=== PATIENT | female | born 1960 | race Caucasian/White ===

== ENCOUNTER 2017-07-30 10:29 | Emergency (ER) | payer OTHER, SELFPAY ==
[2017-07-30 10:30] VITALS: BP 117/68; PULSE 75; RESP 17; TEMP 37; O2SAT 96; BMI 31.8
--- NOTE | 2017-07-30 10:56 | ED.VISSUMM ---
- ER Visit Summary Date of Service: 07/30/17 Chief Complaint: Back pain History of Present Illness: The patient is a 56 F presenting with back pain ?2.5 weeks. Patient has a history of chronic back pain and is in pain management. She denies recent injury. She has left low back pain radiating down her left leg. She is scheduled for an injection by her pain management physician on Tuesday. She takes gabapentin. She denies bowel or bladder incontinence. No numbness or weakness. She is able to ambulate with pain. Denies fever. Denies other complaints. Physical Examination: Vitals are stable. Patient is afebrile. Alert no acute distress. HEENT exam is unremarkable. Neck is supple. Lungs are clear and equal bilaterally. Heart is regular rate and rhythm. Abdomen is soft nontender nondistended. Back: Left low lumbar paraspinal muscle tenderness, no midline tenderness Extremities are unremarkable. Skin is warm and dry. No focal neurologic deficit. Normal strength and sensation Remainder of exam is unremarkable. Emergency Department Course and Treatment: Patient is given morphine, Zofran with improvement. Lumbar x-ray shows mild lumbar spondylotic changes without definite evidence for acute fractures. Patient is advised to follow-up with her pain management physician. She is advised return to ED for any worsening complaints. Disposition: Discharge home Impression: Acute on chronic back pain This note was generated with [employer] dictation software. It may contain incorrect words, spelling, and punctuation that were not noted in review of the chart prior to signing ED Disposition - Plan for ED Patient: Chief Complaint: Back Referrals: Bernard Valdivia MD [Primary Care Provider] -
[2017-07-30] MEDS: morphine 8 MG/ML Syringe IM (11:01)
[2017-07-30] MEDS: Ondansetron ODT 4 MG Tablet 8 MG PO (11:01)
--- NOTE | 2017-07-30 11:10 | RAD_ITS ---
STUDY: X-RAY - LUMBAR SPINE REASON FOR EXAM: Female, 56 years old. Back pain TECHNIQUE: 3 view(s) of the lumbar spine were obtained. COMPARISON: November 07 2014 lumbar spine radiographs FINDINGS: Mild straightening of the lumbar lordotic curvature. Mild anterior osteophytic spurring. Multilevel facet arthrosis. Spinous processes are midline. Degenerative changes in the sacroiliac joints. Vascular calcifications of the abdominal aorta. Mild degenerative changes of the sacroiliac joints. IMPRESSION: Mild lumbar spondylotic changes without definite evidence for acute fractures. Electronically Signed: Tyshawn Sarabia, at 11:42 EDT Tel , Service support , RAD/Lumbar Spine 2 or 3 Views
--- NOTE | 2017-07-30 12:12 | ED.DEP ---
ED Disposition - Plan for ED Patient: Chief Complaint: Back Instructions: ED Neck Back Pain General Referrals: Bernard Valdivia MD [Primary Care Provider] -
[2017-07-30 12:17] VITALS: BP 107/68; PULSE 80
== END 2017-07-30 12:18 | disposition home or self-care (01) ==
PROVIDERS: Emergency Provider Emergency Medicine; Family Provider Family Medicine; PCP Family Medicine
DX: M54.5 Low back pain (principal); G89.29 Other chronic pain; Z79.899 Other long term (current) drug therapy; Z72.0 Tobacco use
CPT/HCPCS: 72100; 96372; 99284

== ENCOUNTER 2017-09-08 14:56 | Emergency (ER) | payer OTHER, MEDICARE, SELFPAY ==
[2017-09-08 14:57] VITALS: BP 102/70; PULSE 88; RESP 18; TEMP 37.2; O2SAT 96; BMI 30.2
--- NOTE | 2017-09-08 16:01 | ED.VISSUMM ---
- ER Visit Summary Date of Service: 09/08/17 Chief Complaint: Back pain History of Present Illness: The patient is a 56 F acute worsening back pain after sneezing 2 hours prior to arrival. States she was standing fixing supper when symptoms started. She has had chronic pain down her left leg. No loss of bowel or bladder control. Patient states she stopped seeing pain management last month and is being referred to neurosurgery in October. She had an ablation on her right side which fixed her right side however this is when the left-sided started. She weaned off her gabapentin in this past week. She is still on Zanaflex. No history of diabetes. States a month ago was seen here after having increasing pain post ablation, had a morphine injection which gave her a headache. Pain is worse with movement. There was no falls or direct injuries. Physical Examination: General: Alert and oriented ?3, no acute distress HEENT: Normocephalic, atraumatic. Moist mucosa membranes Neck: supple, nontender. Cardiovascular: Regular rate and rhythm, no murmurs Respiratory: Normal breath sounds, symmetric, no distress Abdomen: Soft, nontender, nondistended Back: There is tenderness lower lumbar, straight leg test was negative. 1+ patellar reflex bilaterally. Extremities: Nontender, no edema, pulses intact ?4 Neuro: no focal neurological deficits. Test Results: [] Emergency Department Course and Treatment: Patient with no cauda equina symptoms. Vital signs stable. Chronic left leg radicular symptoms. Patient will be placed on a steroid burst to see will help her symptoms. She given Dilaudid subcu injection. She states she would like to go back to using her Carisoprodol for muscle relaxer, short prescription will be written. She will hold her Zanaflex in the meantime. She will follow-up with her PCP and neurosurgeon as an outpatient. Patient had, Treatment Plan: [] Disposition: Discharge Impression: 1. Acute on chronic back pain This note was generated with [employer] dictation software. It may contain incorrect words, spelling, and punctuation that were not noted in review of the chart prior to signing ED Disposition - Plan for ED Patient: Disposition: Home or Assisted Living Chief Complaint: Back Diagnosis: Acute exacerbation of chronic low back pain Instructions: ED Low Back Pain Injury Prescriptions: Carisoprodol [Soma] 250 mg PO Q8H PRN PRN #15 tablet PRN Reason: back pain Prednisone [Deltasone] 60 mg PO DAILY #15 tablet Referrals: Bernard Valdivia MD [Primary Care Provider] - 3-5 Days Additional Instructions: Take medication as prescribed. Hold your Zanaflex while taking Carisoprodol. Follow-up with your doctor and your neurosurgeon.
[2017-09-08] MEDS: predniSONE 20 MG Tablet 60 MG PO (16:43)
[2017-09-08] MEDS: HYDROmorphone 1 MG/ML Syringe SC (16:43)
[2017-09-08 16:50] VITALS: BP 115/85; PULSE 61; RESP 14; O2SAT 97
== END 2017-09-08 17:08 | disposition home or self-care (01) ==
LOC: ED 16:24
PROVIDERS: Emergency Provider Emergency Medicine; Family Provider Family Medicine; PCP Family Medicine
DX: M54.9 Dorsalgia, unspecified (principal); G89.29 Other chronic pain; J44.9 Chronic obstructive pulmonary disease, unspecified; E03.9 Hypothyroidism, unspecified; Z79.899 Other long term (current) drug therapy
CPT/HCPCS: 96372; 99283

== ENCOUNTER 2018-02-01 13:04 | Emergency (ER) | payer OTHER, MEDICARE, SELFPAY ==
[2018-02-01 13:05] VITALS: BP 102/67; PULSE 96; RESP 17; TEMP 36.3; O2SAT 98; BMI 32.3
--- NOTE | 2018-02-01 15:21 | ED.VISSUMM ---
- ER Visit Summary Date of Service: 02/01/18 Chief Complaint: Back pain History of Present Illness: The patient is a 57 F presenting for evaluation secondary to back pain. Patient reports over the course last 3 days she has had a gradual onset of worsening back pain. Patient states that it was not associated with any sort of injury. It is in the left lower back and radiates somewhat to her groin. She denies any numbness weakness fevers weight loss of bowel or bladder incontinence recent surgeries injections or history of IV drug abuse. Patient states that she has been taking Advil and Zanaflex for this. She has had a history of this in the past. Physical Examination: Vitals: Within normal limits General: Well-nourished well-developed no acute distress Head: Normocephalic atraumatic ENT: Moist mucous membranes Neck: Supple no JVD Cardiovascular: Heart regular rate and rhythm no murmurs Respiratory: Respirations nondistressed, lung sounds clear to auscultation bilaterally Abdominal: Soft, nontender, nondistended, normal bowel sounds, no evidence of abdominal masses or pulsatile mass Back: Normal to inspection, no midline tenderness to palpation, straight leg raise negative bilaterally, left paraspinal lumbar tenderness Extremities: Nontender, nonedematous, 2+ radial and PT pulses bilaterally symmetric Skin: Normal color no rash Neuro: 5/5 strength hip flexion, knee flexion, knee extension, dorsiflexion, plantarflexion, EHL. Sensation intact over all dermatomes of the lower extremities bilaterally, 2+ patellar and Achilles reflexes bilaterally symmetric, negative clonus bilaterally Test Results: None indicated Emergency Department Course and Treatment: Patient presented with paraspinal back pain. There is no indication for imaging or neuroimaging. Patient was treated with Valium diclofenac and Lidoderm. Disposition: Discharge Impression: 1. Lumbosacral strain This note was generated with [employer] dictation software. It may contain incorrect words, spelling, and punctuation that were not noted in review of the chart prior to signing ED Disposition - Plan for ED Patient: Disposition: Home or Assisted Living Chief Complaint: Back Diagnosis: Lumbosacral strain Instructions: ED Sprain Strain Lumbar Prescriptions: Diazepam [Valium] 2 mg PO BID PRN PRN 3 Days #6 tab PRN Reason: Muscle Spasm Lidocaine [Lidoderm] 1 ea TP DAILY #10 adh..patch Diclofenac [Voltaren] 50 mg PO BIDCM #10 tab Referrals: Bernard Valdivia MD [Primary Care Provider] - As Needed
[2018-02-01] MEDS: diazePAM 5 MG Tablet 2.5 MG PO (15:28)
[2018-02-01 15:36] VITALS: BP 100/74; PULSE 78; RESP 18; O2SAT 96
[2018-02-01] MEDS: Lidocaine 5% Patch 1 PATCH TOPICAL (15:42)
== END 2018-02-01 15:44 | disposition home or self-care (01) ==
LOC: ED 15:34
PROVIDERS: Emergency Provider Emergency Medicine; Family Provider Family Medicine; PCP Family Medicine
DX: S39.012A Strain of muscle, fascia and tendon of lower back, initial encounter (principal); X58.XXXA Exposure to other specified factors, initial encounter; Y93.9 Activity, unspecified; Y92.9 Unspecified place or not applicable
CPT/HCPCS: 99284

== ENCOUNTER 2020-07-19 10:55 | Emergency (ER) | payer OTHER, MEDICARE, SELFPAY ==
[2020-07-19 10:57] VITALS: BP 111/74; PULSE 99; RESP 18; TEMP 36.6; O2SAT 97; BMI 31.6
--- NOTE | 2020-07-19 11:05 | EDS_ITS ---
HPI History of Present Illness Chief Complaint: Upper Extremity Injury Detail of Chief Complaint: left shoulder pain Informant: patient Onset/Context/Timing Onset: Month(s) (1-2) Context: Gradual Onset (without injury) Timing: Continuous Quality of Pain: Aching Location: left shoulder - subacromial and upper periscapular/trap Current Severity: Severe Maximum Severity: Severe Worsened by: abduction Relieved by: remaining still in neutral position Associated Symptoms Associated Symptoms: Negative for Parasthesia, Weakness and Loss of Funtion Narrative Narrative: Patient started having left shoulder pain 1 or 2 months ago, saw orthopedics and had an x-ray, as well as a cortisone injection about 1.5 months ago which did seem to help. 2 days ago she woke up and the pain was much worse and she cannot abduct more than 10 degrees or so without being in severe pain, significantly limiting her ability to use her left upper extremity. She called her orthopedic yesterday but did not get a call back, today is Tuesday and she is in a lot of pain so she came to the ER for evaluation. She is right-hand dominant. She denies any injury or repetitive movements the day before the onset of pain that she knows of. She denies any systemic symptoms or fevers. She takes no anticoagulants. PFSH [facility] Medical History Cholecystitis without calculus History of COPD History of hypothyroidism Tobacco user Home Medications levothyroxine 100 mcg PO DAILY 06/20/14 [History Last Taken Unknown] tizanidine 1 tab PO Q6H PRN PRN 09/08/17 [History Last Taken Unknown] amitriptyline 25 mg PO QHS 02/01/18 [History Last Taken Unknown] lidocaine 1 ea TP DAILY #10 adh..patch 02/01/18 [Rx Last Taken Unknown] hydrocodone-acetaminophen 1 tab PO Q4H PRN PRN 2 Days #10 tablet 07/19/20 [Rx Last Taken Unknown] Allergy/AdvReac Type Severity Reaction Status Date / Time acetaminophen [From Midol] Allergy Other Verified 07/19/20 10:56 clindamycin Allergy Hives Verified 07/19/20 10:56 ketorolac tromethamine Allergy Hives Verified 07/19/20 10:56 [From Toradol] naproxen Allergy Itching Verified 07/19/20 10:56 pamabrom [From Midol] Allergy Other Verified 07/19/20 10:56 morphine AdvReac Other Verified 07/19/20 10:56 paroxetine [From Paxil] AdvReac Vomiting Verified 07/19/20 10:56 Surgical History (Updated 07/19/20 @ 11:27 by Mouna Crum) H/O foot surgery Social History Smoking Status: Former smoker ROS ROS ED Constitutional Constitutional ED: Denies chills or fever(s) Eyes Eyes: Denies change in vision or diplopia ENT ENT ED: Denies rhinorrhea or sore throat Cardiovascular Cardiovascular: Denies chest pain or palpitations Respiratory/Chest Respiratory/Chest: Denies cough or dyspnea Gastrointestinal Gastrointestinal: Denies abdominal pain, diarrhea, nausea or vomiting Genitourinary Genitourinary ED: Denies dysuria or hematuria Musculoskeletal Musculoskeletal: Reports as per HPI and other Details: L shoulder pain ; Denies back pain or neck pain Integumentary Denies abscess or rash Neurologic Neurologic: Denies headache(s), paresthesias or weakness Psychiatric Psychiatric: Denies anxiety or suicidal thoughts EXAM Physical Exam Const Vital Signs: 07/19/20 10:57 Temperature 97.8 F Temperature Source Temporal Pulse Rate 99 Respiratory Rate 18 Blood Pressure 111/74 Blood Pressure Mean 86 Pulse Ox 97 Positive well nourished, well developed and obese General Appearance ED: well developed and NAD Nutritional Appearance: obese HEENT normocephalic and atraumatic Eyes PERRL and EOMs intact bilaterally Neck full ROM and supple Neck Narrative: Mildly tender in left trapezius above the scapula Resp normal respiratory effort Back/Spine normal ROM and normal to inspection Extremity normal to inspection General Extremety ED: Negative for edema General Extremity: Negative for edema Left Upper Extremity: shoulder joint Shoulder Joint Exam - Left: inspection (Normal without erythema, effusion, deformity), palpation (Mild subacromial tenderness. Nontender acromioclavicular joint, clavicle, scapular spine, acromion.), ROM (Limited but able to abduct to about 10 or 15 degrees. Able to internally rotate and externally rotate around 10 or 15 degrees before she starts having pain; external rotation range is about normal.) and neurovascular exam (Normal with 2+/4 pulse radial) Neuro oriented x3, CN's II-XII intact bilaterally, no focal motor deficits and no sensory deficits noted Sensorium / Orientation: alert Psych mental status grossly normal Skin Lesions: no lesions Rashes: no rashes Trauma: no lacerations or abrasions MDM MDM MDM Narrative Medical decision making narrative: As below, radiography shows calcific tendinitis consistent with the patient's symptoms. Her range of motion is fairly limited, but adequate to rule out a septic arthritis clinically. She was given a dose of tramadol a sling and advised to follow-up with orthopedics after the weekend along with a prescription for analgesics. She is comfortable with that plan. She was given a tramadol here, it did not help much so I prescribed her a short course of Era. Radiography Diagnostic Testin view x-ray of the left shoulder my interpretation shows calcific tendinitis in the supraspinatus tendon. Radiology interpretation is in agreement and show no other acute abnormalities. Discharge Plan Triage Chief Complaint: Upper Extremity Injury ED Provider: Zeke Talley Dx/Rx/DC Orders Clinical Impression: Calcific tendonitis of left shoulder Instructions: ED Shoulder Impingement Syndrome, ED Tendonitis Prescriptions: New hydrocodone-acetaminophen 5-325 mg tablet 1 tab PO Q4H PRN PRN (Reason: Pain) 2 Days Qty: 10 RF: 0 No Action levothyroxine 100 MCG tablet 100 mcg PO DAILY RF: 0 tizanidine 4 MG tablet 1 tab PO Q6H PRN PRN (Reason: Muscle Spasm) RF: 0 lidocaine 1 EACH adhesive patch,medicated 1 ea TP DAILY Qty: 10 RF: 0 amitriptyline 25 MG tablet 25 mg PO QHS RF: 0 Primary Care Provider: Bernard Valdivia Referrals: Zeke Fall MD [NON-STAFF] - 3-5 Days Bernard Valdivia MD [Primary Care Provider] - Disposition Disposition: Home, self care
--- NOTE | 2020-07-19 11:09 | RAD_ITS ---
STUDY: X-RAY - LEFT SHOULDER REASON FOR EXAM: Female, 59 years old. pain TECHNIQUE: 3 view(s) of the shoulder. COMPARISON: None. FINDINGS: Normal glenohumeral articulation. Normal acromioclavicular joint. Normal acromion. Normal humeral head and visualized proximal humerus. There is periarticular soft tissue calcification consistent with a calcific tendinitis. Normal visualized pulmonary apex. Fusion hardware of the lower cervical spine. RAD/Shoulder min 2 Views IMPRESSION: No fracture or malalignment. Electronically Signed: Jayesh Field MD ([place]) at 11:41 EDT , Service support ,
[2020-07-19] MEDS: traMADol 50 MG Tablet PO (11:23)
== END 2020-07-19 12:40 | disposition home or self-care (01) ==
LOC: ED 12:34
PROVIDERS: Emergency Provider Emergency Medicine; PCP Family Medicine
DX: M75.32 Calcific tendinitis of left shoulder (principal); E03.9 Hypothyroidism, unspecified; J44.9 Chronic obstructive pulmonary disease, unspecified; Z87.19 Personal history of other diseases of the digestive system; Z79.899 Other long term (current) drug therapy; Z87.891 Personal history of nicotine dependence
CPT/HCPCS: 73030; 99283

== ENCOUNTER 2022-03-01 12:27 | Emergency (ER) | payer OTHER, MEDICARE, SELFPAY ==
[2022-03-01 12:29] VITALS: BP 139/92; PULSE 107; RESP 18; TEMP 37.6; O2SAT 96; BMI 31.1
[2022-03-01 14:01] VITALS: BP 140/78; PULSE 89; RESP 16; TEMP 37.6; O2SAT 98
[2022-03-01 14:01] LABS: Absolute Lymphocyte Count 1.63 X10^3/uL (0.83-4.51); Absolute Neutrophil Count 3.5 X10^3/uL (2.0-7.7); Basophil# 0.06 X10^3/uL; Eosinophil# 0.13 X10^3/uL; Eosinophils% 2.2 % (0-5); Hematocrit 43.7 % (37-47); Hemoglobin 14.2 g/dL (12.0-15.0); Lymphocyte # 1.63 X10^3/ul (0.83-4.51); Lymphocyte % 27.4 % (19-41); Mean Corp Hgb Conc 32.5 g/dL (32-36); Mean Corpuscular Hgb 31.5 pg (27.0-32.0); Mean Corpuscular Volume 96.9 fL (81-99); Mean Platelet Vol. 10.3 fl (6.2-12.0); Monocyte% 10.1 % (0-10); NRBC Flagged by Analyzer 0 % (0-5); Neutrophil # 3.51 X10^3/uL (2.7-7.7); Neutrophil % 59.1 % (47-70); Platelet Count 224 K/mm3 (150-450); RBC Distribution Width SD 46.7 fl (35.1-43.9); Red Blood Count 4.51 M/mm3 (4.2-5.4); White Blood Count 5.9 K/mm3 (4.4-11.0)
[2022-03-01 14:11] LABS: Anion Gap 4 (5-15); BUN 11 mg/dL (7-18); BUN/Creat Ratio 10.3 RATIO (10-20); Calcium,Total 9.2 mg/dL (8.5-10.1); Chloride 106 mmol/L (98-107); Creatinine, Serum 1.07 mg/dL (0.55-1.02); EST Glomerular Filtration Rate 55 mL/min (>60); Est Glom Filt Rate - Afr Amer 67 mL/min (>60); Estimated Creatinine Clearance 49.68 ml/min; Glucose 106 mg/dL (74-106); Potassium 3.9 mmol/L (3.5-5.1); Sodium Level 139 mmol/L (136-145)
--- NOTE | 2022-03-01 15:06 | RAD_ITS ---
STUDY: X-RAY CHEST REASON FOR EXAM: Female, 61 years old. Cough, fever TECHNIQUE: PA and lateral views of the chest. COMPARISON: Comparison is made with prior study of 02/08/2012. FINDINGS: The lungs are clear and expanded. There is no demonstrated pleural abnormality. Normal size heart. Normal mediastinum and subhash. Normal visualized pulmonary arteries. There is atherosclerotic calcification of the aortic arch with tortuosity. Normal visualized thoracic spine. Prior fusion and disc spacers placed in the lower cervical spine. There is no demonstrated abnormality of the visualized soft tissue structures of the upper abdomen. RAD/Chest PA and Lateral IMPRESSION: No acute abnormality is seen. Electronically Signed: John Brunner MD at 15:21 EST ,
--- NOTE | 2022-03-01 15:11 | CT_ITS ---
STUDY: CT ABDOMEN AND PELVIS WITH CONTRAST REASON FOR EXAM: Fem61 years, old. Diffuse abdominal pain. RADIATION DOSAGE (If Supplied By Facility): CTDIvol = ( 16.61 ) mGy, DLP = ( 1049.21 ) mGycm TECHNIQUE: Transaxial images were obtained from the dome of the diaphragm to the symphysis pubis without oral contrast. 100 CC ISOVUE 300 was administered. Sagittal and coronal images were reconstructed. Individualized dose optimization techniques were used for this CT. COMPARISON: Comparison is made with prior study dated 03/16/2015. FINDINGS: The visualized lung bases are unremarkable. Coronary artery calcification. There is decreased attenuation of the liver consistent with steatosis. The patient is status post cholecystectomy. Normal spleen. Normal pancreas. Normal bilateral adrenal glands. Normal right kidney. Normal left kidney. There is a small hiatal hernia. Normal small intestine. Large amount of fecal material is seen throughout the colon. The patient is status post appendectomy. There is diffuse atherosclerotic calcification of the abdominal aorta, without a demonstrated aneurysm. Normal inferior vena cava. Normal retroperitoneum. Normal urinary bladder. Normal abdominal wall. Normal osseous structures. CT/Abdomen/Pelvis W IV Cont ONLY IMPRESSION: Diffuse fatty infiltration of the liver. Status post cholecystectomy. Large amount of fecal material is seen in the colon. Electronically Signed: John Brunner MD at 15:40 EST ,
[2022-03-01] MEDS: Ondansetron 4 MG/2 ML Vial IV (15:12)
[2022-03-01] MEDS: 0.9% Normal Saline 1,000 ML 150 ML IV (15:12)
[2022-03-01] MEDS: HYDROmorphone 0.5 MG/0.5 ML SYRINGE IV (15:13)
[2022-03-01 15:14] LABS: Mucous, Urine 0 SEEN /hpf (<or=2+); Red Blood Cells-Urine 0 SEEN /hpf (0-5); White Blood Cells 0 SEEN /hpf (0-5)
[2022-03-01 15:16] LABS: Color, Urine Yellow (Yellow); Glucose, Dipstick Normal (Normal); Ketone-Dipstick Negative (Negative); Leukocyte Esterase-Dipstick Negative /ul (Negative); Nitrite-Dipstick Negative (Negative); Occult Blood-Urine Negative /ul (Negative); Protein-Dipstick Negative (Negative); Specific Gravity, Urine 1.015 (1.002-1.030); Urine Bilirubin Dipstick Negative (Negative); Urine Clarity Clear (Clear); Urine Urobilinogen Normal (Normal)
[2022-03-01 15:23] LABS: Bacteria 1+ /hpf (None Seen); Squamous Epithelial Cells - UA 0-5 SEEN /hpf (5-10)
--- NOTE | 2022-03-01 15:26 | ED.VIS.GI ---
HPI HPI - GI History of Present Illness Chief Complaint: Abd Pain Informant: patient Narrative Narrative: Patient is a 61-year-old female with a history of GERD, hypothyroid and multiple abdominal surgeries including surgery for twisted bowels x2, cholecystectomy and appendectomy. She has been doing with ongoing constipation. She is currently on MiraLAX 3 times a day. She is following with a GI doctor in [place] after referral from Dr. Gamino. For the past week she is been having small hard bowel movements and feeling more distended. She denies any associated nausea or vomiting. She notes that whenever she eats about prison through she gets pain in her right upper quadrant and radiates to her right lower quadrant. In addition she had a low-grade temperature of 99.7 yesterday and developed headache over the past 2 to 3 days and has had a cough and nasal congestion. She not sure if these things are related. Denies any sore throat. Not taking medicines for her symptoms today. Spoke to her doctor who said she should come in to make sure there is nothing more severe going on with her abdomen. No other complaints at this time. PFSH PFSH Medical History Cholecystitis without calculus History of COPD History of hypothyroidism Tobacco user Home Medications levothyroxine 100 mcg tablet 100 mcg PO DAILY 06/20/14 [History Last Taken Unknown] tizanidine 4 mg tablet 1 tab PO Q6H PRN PRN Muscle Spasm 09/08/17 [History Last Taken Unknown] amitriptyline 25 mg tablet 25 mg PO QHS 02/01/18 [History Last Taken Unknown] lidocaine 5 % topical patch 1 ea TP DAILY ##10 02/01/18 [Rx Last Taken Unknown] hydrocodone-acetaminophen 5-325mg 5mg-325mg 1 tab PO Q4H PRN PRN Pain 2 days #10 TABLETS 07/19/20 [Rx Last Taken Unknown] lactulose 10 gram/15 mL (15 mL) oral solution 10 g (15 mL) PO TID PRN constipation #600 mL 03/01/22 [Rx Last Taken Unknown] Allergy/AdvReac Type Severity Reaction Status Date / Time acetaminophen [From Midol] Allergy Other Verified 03/01/22 12:29 clindamycin Allergy Hives Verified 03/01/22 12:29 ketorolac tromethamine Allergy Hives Verified 03/01/22 12:29 [From Toradol] naproxen Allergy Itching Verified 12/12/22 12:29 pamabrom [From Midol] Allergy Other Verified 03/01/22 12:29 morphine AdvReac Other Verified 03/01/22 12:29 paroxetine [From Paxil] AdvReac Vomiting Verified 03/01/22 12:29 Surgical History H/O foot surgery Social History Smoking Status: Former smoker ROS ROS ED Constitutional Constitutional ED: Reports chills and fever(s); Denies sweats ENT ENT ED: Reports other Details: nasal congestion ; Denies sore throat Cardiovascular Cardiovascular: Denies chest pain or palpitations Respiratory/Chest Respiratory/Chest: Reports cough; Denies dyspnea Gastrointestinal Gastrointestinal: Reports abdominal pain and constipation; Denies melena, nausea or vomiting Genitourinary Genitourinary ED: Denies dysuria or hematuria Musculoskeletal Musculoskeletal: Denies arthralgias or myalgias Integumentary Denies rash Neurologic Neurologic: Reports headache(s); Denies paresthesias or weakness Psychiatric Psychiatric: Denies anxiety or depression Hematologic/Lymphatic Hematologic/Lymphatic: Denies easy bleeding or easy bruising EXAM Physical Exam Const Vital Signs: 03/01/22 12:29 03/01/22 14:01 03/01/22 16:13 Temperature 99.7 F H 99.6 F H 98.1 F Temperature Source Temporal Temporal Temporal Pulse Rate 107 H 89 98 Respiratory Rate 18 16 16 Blood Pressure 139/92 H 140/78 H 120/108 H Blood Pressure Mean 107 98 112 Pulse Ox 96 98 93 Oxygen Delivery Method Room Air Room Air Room Air 03/01/22 17:08 Temperature Temperature Source Pulse Rate 90 Respiratory Rate 18 Blood Pressure 129/90 H Blood Pressure Mean 103 Pulse Ox 91 Oxygen Delivery Method Room Air Positive well nourished and well developed General Appearance ED: well developed and NAD HEENT Reports TM's clear and dry mucous membranes HEENT Narrative: nasal congestion present normocephalic and atraumatic Tympanic Membrane ED: Yes TM's clear Mouth ED: Yes dry mucous membranes Mouth: dry mucous membranes Eyes PERRL and EOMs intact bilaterally Neck supple Resp normal respiratory effort and clear to auscultation bilaterally Cardio regular rate, regular rhythm and no murmurs GI Inspection: abdominal distention Auscultation: normoactive bowel sounds Palpation: soft and tender RLQ; Negative for guarding, rigid or rebound tenderness present Back/Spine no CVA tenderness Extremity full ROM General Extremety ED: Negative for edema General Extremity: Negative for edema Neuro moves all extremities Sensorium / Orientation: alert, oriented to person, oriented to place and oriented to time Motor Exam: Negative for general weakness Psych mental status grossly normal and thought process normal Skin no wounds General Skin Exam: Negative for jaundice MDM MDM MDM Narrative Medical decision making narrative: Patient is evaluated for abdominal discomfort, distention and URI symptoms. She has a significant abdominal history including multiple bowel surgeries as well as ongoing constipation. She is actually been prescribed Linzess and is waiting to pick it up. Physical exam is markable for low-grade temp of 99.7 and mild tachycardia of 107. Patient is given a dose of Dilaudid as she is allergic to morphine for pain control and Zofran. She is given IV fluids. Belly labs obtained which are largely normal. Patient's creatinine is mildly elevated 1.07 however this is near her baseline. Again she is given IV fluids as she likely is a little dehydrated. Urinalysis is not consistent with infection and lactate is normal. She does not have pain out of proportion. CT of the abdomen and pelvis is consistent with large stool burden but otherwise normal. Chest x-ray interpreted myself as well as radiology does not show an acute process. COVID/flu swab are negative. Patient counseled she likely is a viral syndrome compounded by her chronic constipation. I discussed prescribing her lactulose as MiraLAX has been ineffective despite being on it 3 times a day. She has a prescription for Linzess at the pharmacy I told her she should just try that instead however she is given a paper prescription for lactulose if the Linzess is either ineffective or she does not tolerate it. Patient is given Tylenol and Reglan for her headache with improvement while in the emergency room. She has a normal neurologic exam I do not think head imaging is indicated at this time. Patient is encouraged to follow-up with her primary care doctor as well as her GI doctor. Given return precautions. Discharged home in stable condition. Lab Data Labs: Laboratory Results - last 24 hr 03/01/22 03/01/22 03/01/22 13:50 13:50 13:50 WBC 5.9 RBC 4.51 Hgb 14.2 Hct 43.7 MCV 96.9 MCH 31.5 MCHC 32.5 RDW Std Deviation 46.7 H RDW Coeff of Nikita 13.0 Plt Count 224 MPV 10.3 Immature Gran % (Auto) 0.200 Neut % (Auto) 59.1 Lymph % (Auto) 27.4 [place] % (Auto) 10.1 H Eos % (Auto) 2.2 Baso % (Auto) 1.0 Absolute Neuts (auto) 3.5 Absolute Lymphs (auto) 1.63 Nucleated RBC % 0 Sodium 139 Potassium 3.9 Chloride 106 Carbon Dioxide 29.0 Anion Gap 4 L BUN 11 Creatinine 1.07 H Estim Creat Clear Calc 49.68 Est GFR (MDRD) Af Amer 67 Est GFR (MDRD) Non-Af 55 L BUN/Creatinine Ratio 10.3 Glucose 106 Lactic Acid Calcium 9.2 Total Bilirubin 0.20 Direct Bilirubin < 0.05 AST 20 ALT 31 Alkaline Phosphatase 69 Total Protein 8.1 Albumin 4.0 Globulin 4.1 Lipase Urine Color Urine Clarity Urine pH Ur Specific [place] Urine Protein Urine Glucose (UA) Urine Ketones Urine Occult Blood Urine Nitrite Urine Bilirubin Urine Urobilinogen Ur Leukocyte Esterase Urine RBC Urine WBC Ur Squamous Epith Cells Urine Bacteria Urine Mucus 03/01/22 03/01/22 03/01/22 13:50 14:51 15:08 WBC RBC Hgb Hct MCV MCH MCHC RDW Std Deviation RDW Coeff of Nikita Plt Count MPV Immature Gran % (Auto) Neut % (Auto) Lymph % (Auto) [place] % (Auto) Eos % (Auto) Baso % (Auto) Absolute Neuts (auto) Absolute Lymphs (auto) Nucleated RBC % Sodium Potassium Chloride Carbon Dioxide Anion Gap BUN Creatinine Estim Creat Clear Calc Est GFR (MDRD) Af Amer Est GFR (MDRD) Non-Af BUN/Creatinine Ratio Glucose Lactic Acid 0.6 Calcium Total Bilirubin Direct Bilirubin AST ALT Alkaline Phosphatase Total Protein Albumin Globulin Lipase 119 Urine Color Yellow Urine Clarity Clear Urine pH 6.0 Ur Specific [place] 1.015 Urine Protein Negative Urine Glucose (UA) Normal Urine Ketones Negative Urine Occult Blood Negative Urine Nitrite Negative Urine Bilirubin Negative Urine Urobilinogen Normal Ur Leukocyte Esterase Negative Urine RBC 0 SEEN Urine WBC 0 SEEN Ur Squamous Epith Cells 0-5 SEEN Urine Bacteria 1+ Urine Mucus 0 SEEN Radiography Diagnostic Testing: Clinical Impression(s) from Imaging Studies Chest X-Ray 03/01/22 15:06 IMPRESSION: No acute abnormality is seen. Electronically Signed: John Brunner MD at 15:21 EST , Abdomen/Pelvis CT 03/01/22 15:11 IMPRESSION: Diffuse fatty infiltration of the liver. Status post cholecystectomy. Large amount of fecal material is seen in the colon. Electronically Signed: John Brunner MD at 15:40 EST , Discharge Plan Triage Chief Complaint: Abd Pain Other Complaint: Constipation Cough Fever General Illness ED Provider: Gwendolyn Manzanares Dx/Rx/DC Orders Clinical Impression: Constipation, Headache, Acute viral syndrome, Abdominal pain Instructions: ED Abdominal Pain Unkn Cause Fem, ED Constipation (Adult) Prescriptions: New lactulose 10 gram/15 mL (15 mL) solution 10 g PO TID PRN (Reason: constipation) Qty: 600 0RF No Action levothyroxine 100 MCG tablet 100 mcg PO DAILY tizanidine 4 MG tablet 1 tab PO Q6H PRN PRN (Reason: Muscle Spasm) Label Comments: take 1 tablet by mouth every 6 hours if needed for muscle spasm lidocaine 1 EACH adhesive patch,medicated 1 ea TP DAILY Qty: 10 0RF amitriptyline 25 MG tablet 25 mg PO QHS Label Comments: take 1 tablet by mouth at bedtime hydrocodone-acetaminophen 5-325 mg tablet 1 tab PO Q4H PRN PRN (Reason: Pain) 2 Days Qty: 10 0RF Primary Care Provider: Bernard Valdivia Referrals: Bernard Valdivia MD [Primary Care Provider] - Activity Restrictions/Additional Instructions: I suspect you have a viral syndrome that is causing your upper respiratory symptoms and low-grade fever. No signs of an acute obstruction or any other process in her abdomen however there is constipation. Please follow-up with your GI doctor and start taking the Linzess. You have been given a paper prescription for lactulose if the Linzess does not work. Disposition Disposition: Home, Self Care Discharge Date/Time: 03/01/22 19:07
[2022-03-01 15:36] LABS: Lipase 119 U/L (73-393)
[2022-03-01 15:53] LABS: AST(SGOT) 20 U/L (15-37); Alanine Aminotransfer ALT/SGPT 31 U/L (13-56); Alkaline Phosphatase 69 U/L (45-117); Bilirubin, Direct < 0.05 mg/dL (0.00-0.30); Globulin 4.1 g/dL (2.2-4.2); Protein, Total 8.1 g/dL (6.4-8.2)
[2022-03-01 15:53] LABS: Lactic Acid 0.6 mmol/L (0.4-1.9)
[2022-03-01 16:13] VITALS: BP 120/108; PULSE 98; RESP 16; TEMP 36.7; O2SAT 93
[2022-03-01] MEDS: Acetaminophen 500 MG Tablet PO (17:05)
[2022-03-01] MEDS: Metoclopramide 10 MG/2 ML Vial 5 MG IV (17:06)
[2022-03-01 17:08] VITALS: BP 129/90; PULSE 90; RESP 18; O2SAT 91
== END 2022-03-01 19:07 | disposition home or self-care (01) ==
PROVIDERS: Emergency Provider Emergency Medicine; PCP Family Medicine; Visit Provider Emergency Medicine
DX: K59.00 Constipation, unspecified (principal); J44.9 Chronic obstructive pulmonary disease, unspecified; B34.9 Viral infection, unspecified; R10.9 Unspecified abdominal pain; Z87.891 Personal history of nicotine dependence; R51.9 Headache, unspecified; E03.9 Hypothyroidism, unspecified; Z90.49 Acquired absence of other specified parts of digestive tract; Z20.822 Contact with and (suspected) exposure to COVID-19
CPT/HCPCS: 71046; 74177; 80048; 80076; 81001; 83605; 83690; 85025; 87428; 96374; 96375; 99282; J7030; Q9967; J2405

== ENCOUNTER 2022-11-16 12:45 | Emergency (ER) | payer OTHER, MEDICARE, SELFPAY ==
[2022-11-16 12:46] VITALS: BP 115/76; PULSE 83; RESP 18; TEMP 35.6; O2SAT 99; BMI 32.4
--- NOTE | 2022-11-16 13:05 | ED.VIS.BACK ---
HPI History of Present Illness Chief Complaint: Back Detail of Chief Complaint: Right-sided back pain Informant: patient Onset/Context/Timing Onset: Today Context: Sudden Onset Chronic pain exacerbated by: Any movement Injury: - (Denies) Timing: Continuous and Waxes and wanes Quality: Dull and Aching Location: Lumbar and Right Leg Current Severity: Mild Maximum Severity: Severe Worsened by: improves with Movement, Ambulation, Bending and Lifting Relieved by: Nothing Associated Symptoms Associated Symptoms: Radiation to Right Leg and - (Follow-upNot anesthesia paresthesia. Denies foot drop.); Negative for Numbness, Tingling, Radiation to Left Leg, Fever, Abdominal Pain, Dysuria, Unable to Ambulate, Unable to Transfer, Urinary Retention, Urinary Incontinence, Constipation or Fecal Incontinence Narrative Narrative: Patient is a 63-year-old woman who has had 2 prior back surgeries and a fusion of her neck. She presents with right lower back pain that radiates laterally and into the groin. There is no history of trauma. She denies urologic symptoms. She denies foot drop. She denies buckling of her knees. No recent surgery or dental procedure. Prior similar symptoms: Yes Recent Illness/Hospitalization: No PFSH PFSH Medical History Cholecystitis without calculus History of COPD History of hypothyroidism Tobacco user Home Medications levothyroxine 100 mcg tablet 100 mcg PO DAILY 06/20/14 [History Last Taken Unknown] tizanidine 4 mg tablet 1 tab PO Q6H PRN PRN Muscle Spasm 09/08/17 [History Last Taken Unknown] amitriptyline 25 mg tablet 25 mg PO QHS 02/01/18 [History Last Taken Unknown] lidocaine 5 % topical patch 1 ea TP DAILY ##10 02/01/18 [Rx Last Taken Unknown] hydrocodone-acetaminophen 5-325mg 5mg-325mg 1 tab PO Q4H PRN PRN Pain 2 days #10 TABLETS 07/19/20 [Rx Last Taken Unknown] lactulose 10 gram/15 mL (15 mL) oral solution 10 g (15 mL) PO TID PRN constipation #600 mL 03/01/22 [Rx Last Taken Unknown] diazepam 5 mg tablet (Valium) 5 mg PO TID PRN muscle spasm #7 tabs 11/16/22 [Rx Last Taken Unknown] oxycodone-acetaminophen 5 mg-325 mg tablet (Percocet) 1 tab PO Q8H PRN pain 3 days #10 tabs 11/16/22 [Rx Last Taken Unknown] Allergy/AdvReac Type Severity Reaction Status Date / Time acetaminophen [From Midol] Allergy Other Verified 11/16/22 12:45 clindamycin Allergy Hives Verified 11/16/22 12:45 ketorolac tromethamine Allergy Hives Verified 11/16/22 12:45 [From Toradol] naproxen Allergy Itching Verified 11/16/22 12:45 pamabrom [From Midol] Allergy Other Verified 11/16/22 12:45 morphine AdvReac Other Verified 11/16/22 12:45 paroxetine [From Paxil] AdvReac Vomiting Verified 11/16/22 12:45 Surgical History H/O foot surgery Social History (Updated 11/16/22 @ 13:[address] Kenyon Mccarthy MD) household members: family Smoking Status: Former smoker ROS ROS ED Constitutional Constitutional ED: Denies chills, fever(s), subjective or sweats Cardiovascular Cardiovascular: Denies chest pain, orthopnea, palpitations or paroxysmal nocturnal dyspnea Respiratory/Chest Respiratory/Chest: Denies dyspnea, dyspnea on exertion, orthopnea or paroxysmal nocturnal dyspnea Gastrointestinal Gastrointestinal: Denies abdominal pain, constipation, diarrhea, nausea or vomiting Genitourinary Genitourinary ED: Denies dysuria, hematuria or urinary frequency Musculoskeletal Musculoskeletal: Reports back pain; Denies arthralgias, myalgias or neck pain Integumentary Denies rash Neurologic Neurologic: Denies paresthesias or weakness Hematologic/Lymphatic Hematologic/Lymphatic: Denies easy bleeding or easy bruising EXAM Physical Exam Const Vital Signs: 11/16/22 12:46 11/16/22 13:53 Temperature 96.1 F L Temperature Source Temporal Pulse Rate 83 74 Respiratory Rate 18 18 Blood Pressure 115/76 106/74 Blood Pressure Mean 89 84 Pulse Ox 99 95 Oxygen Delivery Method Room Air Room Air Positive well nourished, well developed and obese General Appearance ED: well developed; Negative for NAD Nutritional Appearance: obese HEENT Reports moist mucous membranes HEENT Narrative: Head is atraumatic normocephalic. Ears normal. Eyes PERRL and EOMs intact bilaterally General Eye ED: Negative for scleral icterus Neck no lymphadenopathy, supple and no JVD Resp normal respiratory effort and clear to auscultation bilaterally Cardio regular rate, regular rhythm, S1 normal heart sound, S2 normal heart sound and no murmurs GI normal to inspection, nondistended, normoactive bowel sounds, soft to palpation, non-tender, non-distended and no masses GI Narrative: There is no palpable pulsatile mass. Normal bruit. Back/Spine normal to inspection; Negative for no thoracic nor lumbar tenderness Back/Spine Narrative: Tenderness right paralumbar region near the posterior iliac spine on the right. Gait was observed. There is no foot drop. Able to walk on heels and toes. Able to perform 1 legged squat right and left. Normal sensation over L3, L4, L5 and S1. EHLs intact bilaterally. DP pulses palpable bilaterally. Movement causes her pain. General Back: Negative for CVA tenderness Lumbar Spine / Lower Back: ROM limited and straight leg raise negative bilaterally Extremity normal to inspection and no clubbing, cyanosis or edema Neuro oriented x3 and no sensory deficits noted Sensorium / Orientation: alert Motor Exam: strength 5/5 throughout Deep Tendon Reflexes: Rt Patellar (L4): 1+, Lt Patellar (L4): 1+, Rt Ankle (S1): 1+ and Lt Ankle (S1): 1+ Deep Tendon Reflexes Back: Rt Patellar (L4): 1+, Lt Patellar (L4): 1+, Rt Ankle (S1): 1+ and Lt Ankle (S1): 1+ Plantar Reflex: Downgoing: bilateral (There is no clonus.) Psych Mood & Affect: depressed Skin no rashes or lesions noted and no wounds MDM MDM MDM Narrative Medical decision making narrative: Patient's physical exam is consistent with muscular pain. There is no concern for cauda equina syndrome. There is no concern for any neurologic impairment. Patient was medicated with IV Dilaudid and p.o. Valium since reports hives with Toradol and refused morphine because it causes her heart to go fast and gives her a migraine headache. Patient did take Zanaflex prior to presentation. History & Record Review Additional record(s) reviewed:: Prior outpatient record (Records for thyroid goiter.), Prior ED visit and Prior labs Treatment and Re-Evaluation Narrative: Patient was reassessed at 1430. Patient still has significant pain with movement. Patient question if this was a herniated disc. Patient was informed this is not a herniated disc. Her history and physical are not consistent with a herniated disc, cauda equina etc. Patient received an additional dose of Dilaudid and Valium. Patient was reassessed at 1505 and she has had improvement. Plan is discharged to home Discharge Plan Triage Chief Complaint: Back ED Provider: Kenyon Mccarthy Dx/Rx/DC Orders Clinical Impression: Pain of back and right lower extremity, Spasm of lumbar paraspinous muscle Instructions: ED Back Pain (Acute or Chronic) Prescriptions: New oxycodone-acetaminophen [Percocet] 5-325 mg tablet 1 tab PO Q8H PRN (Reason: pain) 3 Days Qty: 10 0RF diazepam [Valium] 5 mg tablet 5 mg PO TID PRN (Reason: muscle spasm) Qty: 7 0RF No Action levothyroxine 100 MCG tablet 100 mcg PO DAILY tizanidine 4 MG tablet 1 tab PO Q6H PRN PRN (Reason: Muscle Spasm) Patient Comments: take 1 tablet by mouth every 6 hours if needed for muscle spasm lidocaine 1 EACH adhesive patch,medicated 1 ea TP DAILY Qty: 10 0RF amitriptyline 25 MG tablet 25 mg PO QHS Patient Comments: take 1 tablet by mouth at bedtime hydrocodone-acetaminophen 5-325 mg tablet 1 tab PO Q4H PRN PRN (Reason: Pain) 2 Days Qty: 10 0RF lactulose 10 gram/15 mL (15 mL) solution 10 g PO TID PRN (Reason: constipation) Qty: 600 0RF Primary Care Provider: Bernard Valdivia Referrals: Bernard Valdivia MD [Primary Care Provider] - 3-5 Days if not improving Activity Restrictions/Additional Instructions: 1. Apply ice to your lower back 6-10 times a day 2. If you are unable to urinate, have loss of bowel control, or dragging your foot on the right side or your knee michelle going up or down the step return to the emergency department immediately Disposition Disposition: Home, Self Care
[2022-11-16] MEDS: diazePAM 5 MG Tablet 2.5 MG PO ×2 (13:09→14:38)
[2022-11-16] MEDS: HYDROmorphone 1 MG/ML Syringe 0.5 MG IV (13:10)
[2022-11-16 13:53] VITALS: BP 106/74; PULSE 74; RESP 18; O2SAT 95
[2022-11-16] MEDS: HYDROmorphone 0.5 MG/0.5 ML SYRINGE IV (14:38)
== END 2022-11-16 15:26 | disposition home or self-care (01) ==
PROVIDERS: Emergency Provider Emergency Medicine; PCP Family Medicine; Visit Provider Emergency Medicine
DX: M54.9 Dorsalgia, unspecified (principal); J44.9 Chronic obstructive pulmonary disease, unspecified; M62.830 Muscle spasm of back; Z87.891 Personal history of nicotine dependence; E03.9 Hypothyroidism, unspecified; M79.604 Pain in right leg
CPT/HCPCS: 96374; 96376; 99283; A4216

== ENCOUNTER 2023-10-19 12:36 | Emergency (ER) | payer OTHER, MEDICARE, SELFPAY ==
[2023-10-19 12:37] VITALS: BP 143/86; PULSE 97; RESP 16; TEMP 36.6; O2SAT 100; BMI 34.9
[2023-10-19 12:42] VITALS: BP 139/90; PULSE 99; RESP 16; O2SAT 96
[2023-10-19] MEDS: Famotidine 20 MG Tablet 40 MG PO (12:57)
[2023-10-19] MEDS: DiphenhydrAMINE 25 MG Capsule PO (12:57)
--- NOTE | 2023-10-19 13:19 | EDS_ITS ---
HPI History of Present Illness Chief Complaint: Allergic Reaction Narrative Narrative: Patient is a 62-year-old female with past medical history of hypothyroidism, COPD, tobacco user who presented to the emergency department with a chief complaint of itching and tingling in her mouth after eating cantaloupe. Patient states that this started 2 occur approximately an hour prior to her arrival here. She states that she ate the cantaloupe and notes that her symptoms began she went to an urgent care who then referred her here to the emergency department for further evaluation management. Patient states that she has not eaten cantaloupe in approximately 5 years so she is unsure if she is allergic to that she knows that she was not previously. Patient states that she does not notice any hives or rash just notes that she itches all over the place. Patient states that she is able to swallow normally without any difficulty and she is able to breathe without any difficulty. [facility] Medical History Cholecystitis without calculus Tobacco user History of hypothyroidism History of COPD Home Medications ?Medication ?Instructions ?Recorded ?Last Taken ?Type levothyroxine 100 mcg tablet 100 mcg PO DAILY 06/20/14 Unknown History tizanidine 4 mg tablet 1 tab PO Q6H PRN PRN Muscle Spasm 09/08/17 Unknown History amitriptyline 25 mg tablet 25 mg PO QHS 02/01/18 Unknown History lidocaine 5 % topical patch 1 ea TP DAILY ##10 02/01/18 Unknown Rx hydrocodone-acetaminophen 5-325mg 1 tab PO Q4H PRN PRN Pain 2 days 07/19/20 Unknown Rx 5mg-325mg #10 TABLETS lactulose 10 gram/15 mL (15 mL) 10 g (15 mL) PO TID PRN 03/01/22 Unknown Rx oral solution constipation #600 mL diazepam 5 mg tablet (Valium) 5 mg PO TID PRN muscle spasm #7 11/16/22 Unknown Rx tabs oxycodone-acetaminophen 5 mg-325 1 tab PO Q8H PRN pain 3 days #10 11/16/22 Unknown Rx mg tablet (Percocet) tabs Allergy/AdvReac Type Severity Reaction Status Date / Time cantaloupe Allergy Mild Itching Verified 10/19/23 12:38 acetaminophen (From Midol) Allergy Other Verified 11/16/22 12:45 clindamycin Allergy Hives Verified 11/16/22 12:45 ketorolac tromethamine (From Allergy Hives Verified 11/16/22 12:45 Toradol) naproxen Allergy Itching Verified 11/16/22 12:45 pamabrom (From Midol) Allergy Other Verified 11/16/22 12:45 morphine AdvReac Other Verified 11/16/22 12:45 paroxetine (From Paxil) AdvReac Vomiting Verified 11/16/22 12:45 Surgical History H/O foot surgery Social History (Updated 11/16/22 @ 13:[address] Kenyon Mccarthy MD) household members: family Smoking Status: Former smoker ROS ROS ED ROS Narrative Constitutional: Denies fevers, chills, headaches, Tru, dizziness Eyes: Denies change in vision double vision blurry vision Cardiovascular: Denies chest pain or palpitations Respiratory: Denies coughing wheezing shortness of breath Abdomen: Denies abdominal pain nausea vomiting diarrhea : Denies urinary symptoms Neurological: Complains of a tingling sensation in her mouth denies any numbness, weakness or other tingling Skin: States that she feels like her skin is itchy but denies any other lesions or hives or rashes EXAM Physical Exam Narrative Exam Narrative: General: Patient lying in bed rest comfortably did not appear to be in acute distress Head: Atraumatic, normocephalic Eyes: PERRL bilaterally, EOMI bilaterally, no conjunctival injection noted Ears, nose, throat: No posterior pharynx erythema, uvula midline, no intraoral lesions noted, no sublingual swelling Neck: Soft, supple, trachea midline, no concern for Harvey angina Cardiovascular: Regular rate and rhythm no murmurs gallops rubs noted Respiratory: Clear to auscultation bilaterally no rales rhonchi or wheezes noted Abdomen: Soft, nondistended, no tenderness to palpation, bowel sounds present for Extremities: +5/5 strength noted in the bilateral upper and lower extremities, no pedal edema on exam Neurological: Patient following commands knew that she was at [facility] the year is 2023 Skin: Warm, dry, intact, no rashes or lesions noted no hives noted Const Vital Signs: 10/19/23 12:37 10/19/23 12:42 Temperature 97.9 F Temperature Source Temporal Pulse Rate 97 99 Respiratory Rate 16 16 Blood Pressure 143/86 H 139/90 H Blood Pressure Mean 105 106 Pulse Ox 100 96 Oxygen Delivery Method Room Air Room Air MDM MDM MDM Narrative Medical decision making narrative: Patient is a 62-year-old female who presented to the emergency department with a complaint of concern for allergic reaction to cantaloupe. Patient be given Benadryl and Pepcid here in the emergency department and be observed. Patient was observed here in the emergency department states that she feels back to her baseline and would like to go home. Patient was advised to take Benadryl over the next few days if needed for itching. She was advised to avoid cantaloupe. She is encouraged to return with worsening symptoms or other concerns. All question concerns answered she was discharged home in stable condition. Discharge Plan Triage Chief Complaint: Allergic Reaction ED Provider: Loco Aldrich Dx/Rx/DC Orders Prescriptions: No Action levothyroxine 100 MCG tablet 100 mcg PO DAILY tizanidine 4 MG tablet 1 tab PO Q6H PRN PRN (Reason: Muscle Spasm) Patient Comments: take 1 tablet by mouth every 6 hours if needed for muscle spasm lidocaine 1 EACH adhesive patch,medicated 1 ea TP DAILY Qty: 10 0RF amitriptyline 25 MG tablet 25 mg PO QHS Patient Comments: take 1 tablet by mouth at bedtime hydrocodone-acetaminophen 5-325 mg tablet 1 tab PO Q4H PRN PRN (Reason: Pain) 2 Days Qty: 10 0RF lactulose 10 gram/15 mL (15 mL) solution 10 g PO TID PRN (Reason: constipation) Qty: 600 0RF oxycodone-acetaminophen [Percocet] 5-325 mg tablet 1 tab PO Q8H PRN (Reason: pain) 3 Days Qty: 10 0RF diazepam [Valium] 5 mg tablet 5 mg PO TID PRN (Reason: muscle spasm) Qty: 7 0RF Primary Care Provider: Bernard Valdivia Referrals: Bernard Valdivia MD [Primary Care Provider] - Print Language: Macedonian
[2023-10-19 13:43] VITALS: BP 106/62; PULSE 87; RESP 16; TEMP 36.6; O2SAT 96
== END 2023-10-19 13:47 | disposition home or self-care (01) ==
PROVIDERS: Emergency Provider Emergency Medicine; PCP Family Medicine; Visit Provider Emergency Medicine
DX: T78.1XXA Other adverse food reactions, not elsewhere classified, initial encounter (principal); J44.9 Chronic obstructive pulmonary disease, unspecified; Z87.891 Personal history of nicotine dependence; E03.9 Hypothyroidism, unspecified
CPT/HCPCS: 99283

== ENCOUNTER 2024-02-21 12:18 | Emergency (ER) | payer OTHER, MEDICARE, SELFPAY ==
[2024-02-21 12:19] VITALS: BP 130/84; PULSE 98; RESP 16; TEMP 36.8; O2SAT 98; BMI 34.8
[2024-02-21 12:55] VITALS: BP 130/84; PULSE 98; RESP 16; TEMP 36.8; O2SAT 98
--- NOTE | 2024-02-21 13:29 | EKG12_ITS ---
Test Reason : WEAKNESS Blood Pressure : */* mmHG Vent. Rate : 79 BPM Atrial Rate : 79 BPM P-R Int : 180 ms QRS Dur : 94 ms QT Int : 394 ms P-R-T Axes : 69 52 30 degrees QTcB Int : 451 ms Sinus rhythm Abnormal ECG Confirmed by Jaime Gage ([id number]), film and video editor OWEN LOPEZ ([id number]) on 02/22/2024 6:32:43 AM Referred By: Confirmed By: Jaime Gage
[2024-02-21] MEDS: fentaNYL 100 MCG/2 ML Ampul 50 MCG IV (13:44)
[2024-02-21 13:52] VITALS: BP 136/80; PULSE 82; RESP 14; TEMP 36.7; O2SAT 96
[2024-02-21 13:58] LABS: Absolute Lymphocyte Count 2.18 X10^3/uL (0.83-4.51); Absolute Neutrophil Count 2.8 X10^3/uL (2.0-7.7); Basophil# 0.07 X10^3/uL; Basophil% 1.2 % (0-1); Eosinophil# 0.26 X10^3/uL; Eosinophils% 4.6 % (0-5); Hematocrit 40.6 % (37-47); Hemoglobin 13.3 g/dL (12.0-15.0); Lymphocyte # 2.18 X10^3/ul (0.83-4.51); Lymphocyte % 38.4 % (19-41); Mean Corp Hgb Conc 32.8 g/dL (32-36); Mean Corpuscular Hgb 31.6 pg (27.0-32.0); Mean Corpuscular Volume 96.4 fL (81-99); Mean Platelet Vol. 9.9 fl (6.2-12.0); Monocyte# 0.34 X10^3/uL; NRBC Flagged by Analyzer 0 % (0-5); Neutrophil # 2.81 X10^3/uL (2.7-7.7); Neutrophil % 49.4 % (47-70); POSITIVE MORPHOLOGY YES; Platelet Count 246 K/mm3 (150-450); RBC Distribution Width CV 13.1 % (11.6-14.6); RBC Distribution Width SD 46.3 fl (35.1-43.9); Red Blood Count 4.21 M/mm3 (4.2-5.4); White Blood Count 5.7 K/mm3 (4.4-11.0)
[2024-02-21 14:00] LABS: Differential Indicated SCAN CRITERIA MET
[2024-02-21 14:11] LABS: D-Dimer Quantitative (DVT/PE) 0.27 FEU/ug/m (0.27-0.49)
[2024-02-21 14:20] LABS: Anion Gap 6 (5-15); BUN 12 mg/dL (7-18); BUN/Creat Ratio 11.2 RATIO (10-20); Calcium,Total 8.9 mg/dL (8.5-10.1); Chloride 108 mmol/L (98-107); Creatinine, Serum 1.07 mg/dL (0.55-1.02); EST Glomerular Filtration Rate 55 mL/min (>60); Est Glom Filt Rate - Afr Amer 67 mL/min (>60); Estimated Creatinine Clearance 61.34 ml/min; Glucose 157 mg/dL (74-106); Potassium 3.8 mmol/L (3.5-5.1); Sodium Level 140 mmol/L (136-145); Troponin-I HS 4 pg/mL (3.0-54.0)
[2024-02-21 14:23] LABS: Reactive Lymphocyte 1+
[2024-02-21 14:29] VITALS: BP 134/85
--- NOTE | 2024-02-21 14:29 | ED.VIS.CHEST ---
HPI History of Present Illness Chief Complaint: Chest Other Informant: patient Narrative Narrative: Patient is a 63-year-old female presenting with cough and right-sided chest pain. Patient initially went to urgent care and she was told she come in the ER for concern of pulmonary emboli. Patient states she had a cold about 2 weeks ago and had a cough since. She states her cough is been of very severe and she is been coughing up white sticky mucus. She does have a history of asthma and at one point states her home O2 was 78%. She notes that her breathing feels improved but she is now having worsening right lung pain. She denies any fever. She has a swelling of her legs. She has a history of DVT or PE. She does see a cleaner furniture. She notes that she also lost her voice with this illness. Her is starting to get a cold as well now. Initially was treated with a Z-Duong but is not been on any steroids. No other complaints or concerns reported at this time. [facility] Medical History Cholecystitis without calculus Tobacco user History of hypothyroidism History of COPD Home Medications ?Medication ?Instructions ?Recorded ?Last Taken ?Type levothyroxine 100 mcg tablet 100 mcg PO DAILY 06/20/14 Unknown History tizanidine 4 mg tablet 1 tab PO Q6H PRN PRN Muscle Spasm 09/08/17 Unknown History amitriptyline 25 mg tablet 25 mg PO QHS 02/01/18 Unknown History lidocaine 5 % topical patch 1 ea TP DAILY ##10 02/01/18 Unknown Rx hydrocodone-acetaminophen 5-325mg 1 tab PO Q4H PRN PRN Pain 2 days 07/19/20 Unknown Rx 5mg-325mg #10 TABLETS lactulose 10 gram/15 mL (15 mL) 10 g (15 mL) PO TID PRN 03/01/22 Unknown Rx oral solution constipation #600 mL diazepam 5 mg tablet (Valium) 5 mg PO TID PRN muscle spasm #7 11/16/22 Unknown Rx tabs oxycodone-acetaminophen 5 mg-325 1 tab PO Q8H PRN pain 3 days #10 11/16/22 Unknown Rx mg tablet (Percocet) tabs codeine 10 mg-guaifenesin 100 mg/5 5 ml PO Q4H PRN cough 3 days #118 02/21/24 Unknown Rx mL oral liquid mL guaifenesin 1,200 mg tablet, 1,200 mg PO BID #20 tabs 02/21/24 Unknown Rx extended release 12 hr (Mucinex) prednisone 20 mg tablet 40 mg (2 x 20 mg) PO DAILY #8 tabs 02/21/24 Unknown Rx Allergy/AdvReac Type Severity Reaction Status Date / Time cantaloupe Allergy Mild Itching Verified 10/19/23 12:38 clindamycin Allergy Hives Verified 11/16/22 12:45 ketorolac tromethamine (From Allergy Hives Verified 11/16/22 12:45 Toradol) naproxen Allergy Itching Verified 11/16/22 12:45 pamabrom (From Midol) Allergy Other Verified 11/16/22 12:45 morphine AdvReac Other Verified 11/16/22 12:45 paroxetine (From Paxil) AdvReac Vomiting Verified 11/16/22 12:45 Surgical History H/O foot surgery Social History household members: family Smoking Status: Former smoker ROS ROS ED Constitutional Constitutional ED: Denies chills or fever(s) ENT ENT ED: Reports ear pain right and sore throat; Denies rhinorrhea Cardiovascular Cardiovascular: Reports chest pain Respiratory/Chest Respiratory/Chest: Reports cough; Denies dyspnea Gastrointestinal Gastrointestinal: Denies nausea or vomiting Musculoskeletal Musculoskeletal: Denies arthralgias or myalgias Integumentary Denies rash Neurologic Neurologic: Denies paresthesias or weakness EXAM Physical Exam Const Vital Signs: 02/21/24 12:19 02/21/24 12:55 02/21/24 13:52 Temperature 98.2 F 98.2 F 98.1 F Temperature Source Oral Oral Temporal Pulse Rate 98 98 82 Respiratory Rate 16 16 14 Blood Pressure 130/84 H 130/84 H 136/80 H Blood Pressure Mean 99 99 98 Pulse Ox 98 98 96 Oxygen Delivery Method Room Air Room Air 02/21/24 13:52 02/21/24 14:29 Temperature Temperature Source Pulse Rate Respiratory Rate Blood Pressure 134/85 H Blood Pressure Mean 101 Pulse Ox Oxygen Delivery Method Room Air Positive well nourished and well developed General Appearance ED: well developed and NAD HEENT Reports TM's clear and moist mucous membranes HEENT Narrative: Hoarse voice, normal oropharynx normocephalic Tympanic Membrane ED: Yes TM's clear Neck supple Chest Wall inspection of chest normal Chest Narrative: Mild to palpation of the right ribs Resp normal respiratory effort and clear to auscultation bilaterally Auscultation: diminished lung sounds right lower Cardio regular rate and regular rhythm GI normal to inspection, nondistended, normoactive bowel sounds and soft to palpation Extremity normal to inspection General Extremety ED: Negative for edema General Extremity: Negative for edema Neuro oriented x3 Sensorium / Orientation: awake and alert Motor Exam: Negative for general weakness Psych mental status grossly normal Skin no rashes or lesions noted and no wounds MDM MDM MDM Narrative Medical decision making narrative: Patient is evaluated for right-sided chest pain/rib pain and persistent cough. She has had what sound like a viral illness for about 2 weeks. Differential includes bronchitis, costochondritis, pleurisy, pneumonia, pleural effusion and pulmonary emboli. She is actually a low risk for PE given her vital signs and HPI however will add on a D-dimer. Workup is largely negative including CBC, D-dimer and BNP. High since her troponin is normal at 4. She is very mild elevation of her creatinine of 1.07 which appears to be her baseline. Patient is given dose of fentanyl for pain in the emergency room. Two-view chest x-ray viewed by myself as well as radiology not show any acute process. I do not think the patient requires a CTA. Patient will be given a prescription for prednisone as her cough is more bronchial nature and I suspect is more related to bronchitis from viral syndrome. She has inhalers to use at home. Will be given a prescription for Robitussin AC to help with her cough which I think ultimately will help with her pain. Patient can take Tylenol as needed for pain. Is given return precautions. She verbalized agreement or standing with this plan. Discharged home in stable condition. Lab Data Attestation: I reviewed the patient's lab results. Labs: Laboratory Results - last 24 hr 02/21/24 13:50 WBC 5.7 RBC 4.21 Hgb 13.3 Hct 40.6 MCV 96.4 MCH 31.6 MCHC 32.8 RDW Std Deviation 46.3 H RDW Coeff of Nikita 13.1 Plt Count 246 MPV 9.9 Immature Gran % (Auto) 0.400 Neut % (Auto) 49.4 Lymph % (Auto) 38.4 Geary % (Auto) 6.0 Eos % (Auto) 4.6 Baso % (Auto) 1.2 H Absolute Neuts (auto) 2.8 Absolute Lymphs (auto) 2.18 Nucleated RBC % 0 Reactive Lymphocytes 1+ D-Dimer Quant (PE/DVT) 0.27 Sodium 140 Potassium 3.8 Chloride 108 H Carbon Dioxide 27.0 Anion Gap 6 BUN 12 Creatinine 1.07 H Estim Creat Clear Calc 61.34 Est GFR (MDRD) Af Amer 67 Est GFR (MDRD) Non-Af 55 L BUN/Creatinine Ratio 11.2 Glucose 157 H Calcium 8.9 Troponin I High Sens 4 Radiography Diagnostic Testing: Clinical Impression(s) from Imaging Studies Chest X-Ray 02/21/24 14:35 IMPRESSION: No acute cardiopulmonary abnormality. No interval change. Electronically Signed: David Oneil MD at 15:14 EST , Rhythm Strip Rhythm Strip: Sinus Rhythm Rate: 79 Ectopy: None EKG Initial EKG: Attestation: I personally reviewed and interpreted this EKG as follows: Interpretation: Sinus Rhythm Comments: Normal sinus rhythm rate of 79 bpm Normal axis Normal intervals Normal ST segments Discharge Plan Triage Chief Complaint: Chest Other ED Provider: Gwendolyn Manzanares Dx/Rx/DC Orders Clinical Impression: Right-sided chest wall pain, Bronchitis Instructions: ED Bronchitis, No Antibiotic (Adult), ED Chest Wall Pain, Costochondritis, ED Pleurisy Prescriptions: New prednisone 20 mg tablet 40 mg PO DAILY Qty: 8 0RF codeine-guaifenesin 10-100 mg/5 mL liquid 5 ml PO Q4H PRN (Reason: cough) 3 Days Qty: 118 0RF guaifenesin [Mucinex] 1,200 mg tablet extended release 12hr 1,200 mg PO BID Qty: 20 0RF No Action levothyroxine 100 MCG tablet 100 mcg PO DAILY tizanidine 4 MG tablet 1 tab PO Q6H PRN PRN (Reason: Muscle Spasm) Patient Comments: take 1 tablet by mouth every 6 hours if needed for muscle spasm lidocaine 1 EACH adhesive patch,medicated 1 ea TP DAILY Qty: 10 0RF amitriptyline 25 MG tablet 25 mg PO QHS Patient Comments: take 1 tablet by mouth at bedtime hydrocodone-acetaminophen 5-325 mg tablet 1 tab PO Q4H PRN PRN (Reason: Pain) 2 Days Qty: 10 0RF lactulose 10 gram/15 mL (15 mL) solution 10 g PO TID PRN (Reason: constipation) Qty: 600 0RF oxycodone-acetaminophen [Percocet] 5-325 mg tablet 1 tab PO Q8H PRN (Reason: pain) 3 Days Qty: 10 0RF diazepam [Valium] 5 mg tablet 5 mg PO TID PRN (Reason: muscle spasm) Qty: 7 0RF Primary Care Provider: Bernard Valdivia Referrals: Bernard Valdivia MD [Primary Care Provider] - Activity Restrictions/Additional Instructions: I suspect you have bronchitis with chest wall pain/lung irritation from all of your coughing. That you have been prescribed prescription strength cough medicine, mucolytic and steroids. Continue use your albuterol as well. Follow-up with your primary care doctor. He did not have findings consistent with a blood clot/pulmonary blood today. With bronchitis your cough may persist for 3 to 4 weeks in total. Print Language: Mohawk Disposition Disposition: Home, Self Care
--- NOTE | 2024-02-21 14:35 | RAD_ITS ---
EXAM: XR CHEST, 2 VIEWS CLINICAL INDICATION: cough, right sided pain TECHNIQUE: Frontal and lateral views of the chest. COMPARISON: XR Chest dated 03/01/2022 FINDINGS: LUNGS AND PLEURAL SPACES: Normal. No consolidation or edema. No pneumothorax. No effusion. HEART: Normal heart size. MEDIASTINUM: No mediastinal or hilar mass. BONES/JOINTS: No acute abnormality. RAD/Chest PA and Lateral IMPRESSION: No acute cardiopulmonary abnormality. No interval change. Electronically Signed: David Oneil MD at 15:14 EST ,
[2024-02-21] MEDS: predniSONE 20 MG Tablet 60 MG PO (15:49)
[2024-02-21 15:50] VITALS: BP 132/92; PULSE 75; RESP 18; TEMP 36.6; O2SAT 99
== END 2024-02-21 16:27 | disposition home or self-care (01) ==
PROVIDERS: Emergency Provider Emergency Medicine; PCP Family Medicine; Visit Provider Emergency Medicine
DX: R07.89 Other chest pain (principal); J44.9 Chronic obstructive pulmonary disease, unspecified; Z87.891 Personal history of nicotine dependence; J40 Bronchitis, not specified as acute or chronic; E03.9 Hypothyroidism, unspecified; Z79.890 Hormone replacement therapy
CPT/HCPCS: 71046; 80048; 84484; 85025; 85379; 93005; 96374; 99284; A4216

== ENCOUNTER 2024-12-06 10:38 | Emergency (ER) | payer OTHER, MEDICARE, SELFPAY ==
[2024-12-06 10:38] VITALS: BP 126/87; PULSE 84; RESP 14; TEMP 36.7; O2SAT 98; BMI 33.6
--- NOTE | 2024-12-06 15:57 | EDS_ITS ---
HPI HPI - GI History of Present Illness Chief Complaint: Constipation Informant: patient Narrative Narrative: Patient is a 64-year-old female with history of chronic constipation presenting with constipation. States he has not a bowel movement in 17 days. She is passing lots of gas. States is typical for her to go 7 to 10 days without a bowel movement. She notes she has been having some discomfort in her right upper quadrant. Does have a history of prior abdominal surgeries including twisted bowel x 2, cholecystectomy and appendectomy. Her PCP started her on lactulose which she has been taking 3 times a day. She was told that she does not have a bowel movement in 2 days she should come to the ER. She is also tried on Ex-Lax/MiraLAX and other flez-kct-dxwdvnx regimens. She has tried Fleet enema at home a couple days ago. No other complaint or concern for at this time. Does not currently follow with GI but previously has seen GI through [facility]. [facility] Medical History Cholecystitis without calculus Tobacco user History of hypothyroidism History of COPD Home Medications ?Medication ?Instructions ?Recorded ?Last Taken ?Type levothyroxine 100 mcg tablet 100 mcg PO DAILY 06/20/14 Unknown History tizanidine 4 mg tablet 1 tab PO Q6H PRN PRN Muscle Spasm 09/08/17 Unknown History amitriptyline 25 mg tablet 50 mg PO TID 02/01/18 Unkno wn History lactulose 10 gram/15 mL (15 mL) 10 g (15 mL) PO TID [place] N 03/01/22 Unknown Rx oral solution constipation #600 mL fluticasone fur. 100 mcg-umeclid 1 inh inhalation TODD Y 12/06/24 Unknown History 62.5 mcg-vilant 25 mcg inhalat.powder (Trelegy Ellipta) metformin 500 mg tablet,extended 500 mg PO DAILY 12/06 Unknown History release 24 hr (Glucophage XR) omeprazole 20 mg capsule,delayed 20 mg PO DAILY Unknown History release Allergy/AdvReac Type Severity Reaction Status Date / Time cantaloupe Allergy Mild Itching Verified 12/06/24 10:39 clindamycin Allergy Hives Verified 12/06/24 10:39 ketorolac tromethamine (From Allergy Hives Verified 12/06/24 10:39 Toradol) naproxen Allergy Itching Verified 12/06/24 10:39 pamabrom (From Midol) Allergy Other Verified 12/06/24 10:39 morphine AdvReac Other Verified 12/06/24 10:39 paroxetine (From Paxil) AdvReac Vomiting Verified 12/06/24 10:39 Surgical History H/O foot surgery Social History household members: family Smoking Status: Former smoker ROS ROS ED Constitutional Constitutional ED: Denies chills or fever(s) Gastrointestinal Gastrointestinal: Reports abdominal pain and constipation; Denies nausea or vomiting Genitourinary Genitourinary ED: Denies dysuria Musculoskeletal Musculoskeletal: Denies arthralgias or myalgias Integumentary Denies rash EXAM Physical Exam Const Vital Signs: 12/06/24 10:38 12/06/24 16:04 Temperature 98.1 F Temperature Source Temporal Pulse Rate 84 78 Respiratory Rate 14 16 Blood Pressure 126/87 H 118/85 H Blood Pressure Mean 100 96 Pulse Ox 98 94 Oxygen Delivery Method Room Air Room Air Positive well nourished and well developed General Appearance ED: well developed and NAD HEENT Reports moist mucous membranes Neck supple Resp normal respiratory effort Cardio regular rate and regular rhythm GI non-tender GI Narrative: Protuberant abdomen. Abdomen is soft and nontympanic. Active bowel sounds present. Chaperoned rectal exam performed. There is a small amount of hard formed stool just out of reach of my finger for disimpaction. Palpation: Negative for tender, guarding or rigid Extremity full ROM Neuro Sensorium / Orientation: alert, oriented to person, oriented to place and oriented to time Psych mental status grossly normal and thought process normal MDM MDM MDM Narrative Medical decision making narrative: Patient evaluated for ongoing constipation. She states is been 17 days since she has had a bowel movement. Rectal exam does show stool in the rectal vault but it is too high up for me to perform disimpaction. Patient has stable vital signs and overall is quite well-appearing. Initially she was given a soapsuds enema. She is only to take about 500 cc. She had minimal results with this. She is given additional 500 cc. She has had further small results with it. Patient would like to pursue x-ray of the abdomen to ensure there is no acute obstructive process. I have a lower clinical suspicion given that she is not having any vomiting and is still been passing gas. If x-ray shows a nonobstructive pattern anticipate discharge home have her continue her lactulose and have her increase it. She can also try further enemas/magnesium citrate at home. Will give her outpatient referral for GI. X-ray of abdomen reviewed by myself as well as radiology shows moderate to large amount of colonic stool but no obstructive findings. Radiography Diagnostic Testing: Clinical Impression(s) from Imaging Studies Abdomen X-Ray 12/06/24 16:10 IMPRESSION: [id number] amount of colonic stool. Reading Location: [facility] Discharge Plan Triage Chief Complaint: Constipation ED Provider: Gwendolyn Manzanares Dx/Rx/DC Orders Clinical Impression: Constipation Instructions: ED Constipation (Adult) Prescriptions: No Action levothyroxine 100 MCG tablet 100 mcg PO DAILY tizanidine 4 MG tablet 1 tab PO Q6H PRN PRN (Reason: Muscle Spasm) Patient Comments: take 1 tablet by mouth every 6 hours if needed for muscle spasm amitriptyline 25 MG tablet 50 mg PO TID lactulose 10 gram/15 mL (15 mL) solution 10 g PO TID PRN (Reason: constipation) Qty: 600 0RF metformin [Glucophage XR] 500 mg tablet extended release 24 hr 500 mg PO DAILY omeprazole 20 mg capsule,delayed release(DR/EC) 20 mg PO DAILY Trelegy Ellipta 100-62.5-25 mcg blister with device 1 inh inhalation DAILY Primary Care Provider: Bernard Valdivia Referrals: Bernard Valdivia MD [Primary Care Provider, Family Practice] Friend,Landon, [Med Staff - Active Staff, Gastroenterology] Activity Restrictions/Additional Instructions: You may increase your lactulose (instead of taking 15 mL you can increase it to 20 mL 3 times a day). In addition continue to push fluids, do a lot of walking. He may use further fleet enema at home tomorrow if you have not had better results or take lkks-wcz-hzlgkdx magnesium citrate (drink half of the bottle). Print Language: Russian Disposition Disposition: Home, Self Care
[2024-12-06 16:04] VITALS: BP 118/85; PULSE 78; RESP 16; O2SAT 94
--- NOTE | 2024-12-06 16:10 | RAD_ITS ---
PROCEDURE: ABD INC DECUB AND/OR ERECT 12/06/2024 REASON FOR EXAM: CONSTIPATION TECHNIQUE: Procedure Code: [id number] Modality: DX Procedure: ABD INC DECUB AND/OR ERECT COMPARISON: None. FINDINGS: LUNG BASES: Lung bases clear where seen. BOWEL: The bowel gas pattern is unremarkable. No bowel obstruction. Ccqiirbw-[id number] amount of stool in the ascending and transverse colon. PERITONEUM/SOFT TISSUES: No appreciable free air. Multiple rounded pelvic calcifications, likely phleboliths. BONES: No acute osseous abnormality. RAD/Abd Inc Decub and/or Erect IMPRESSION: Chztbzgv-af-[id number] amount of colonic stool. Reading Location: [id number]
== END 2024-12-06 16:58 | disposition home or self-care (01) ==
PROVIDERS: Emergency Provider Emergency Medicine; PCP Family Medicine; Visit Provider Emergency Medicine
DX: K59.09 Other constipation (principal); J44.9 Chronic obstructive pulmonary disease, unspecified; Z87.891 Personal history of nicotine dependence; E03.9 Hypothyroidism, unspecified; Z79.890 Hormone replacement therapy; Z79.51 Long term (current) use of inhaled steroids
CPT/HCPCS: 74019; 99284

== ENCOUNTER → 2025-01-31 | Outpatient (CLI) | payer OTHER, MEDICARE, SELFPAY ==
--- NOTE | 2025-01-31 12:51 | CT_ITS ---
PROCEDURE: ABDOMEN/PELVIS WITH CONTRAST 01/31/2025 REASON FOR EXAM: CONSTIPATION Right upper quadrant pain. TECHNIQUE: Procedure Code: [id number] Modality: CT Procedure: ABDOMEN/PELVIS WITH CONTRAST Coronal and Sagittal reconstruction series were provided. CONTRAST: Isovue-300 VOLUME: 100 mL One or more dose reduction techniques were used (e.g., Automated exposure control, adjustment of the mA and/or kV according to patient size, use of iterative reconstruction technique. RADIATION DOSE SUMMARY: CTDlvol: 17.5 mGy DLP: 1163.4 mGycm COMPARISON: March 01, 2022. FINDINGS: Lung bases: Mild dependent atelectasis coronary artery calcification. Liver: Diffuse fatty infiltration. Hepatomegaly. Gallbladder: Surgically absent. Spleen: Normal size. Pancreas: Normal size without evidence of mass surrounding inflammation or ductal dilation. Adrenals: Unremarkable. Kidneys: Normal renal sizes. No hydronephrosis. Bladder: Unremarkable Reproductive Organs: Normal uterine size and contour. Ovaries are unremarkable. Bowel: Large amount of fecal material is seen in the right hemicolon. Appendix: Prior appendectomy. Lymph nodes: Unremarkable. Vasculature: Mild diffuse atherosclerotic calcifications are noted. Peritoneum / Retroperitoneum: Unremarkable Bones: No significant abnormality. CT/Abdomen/Pelvis WITH Contrast IMPRESSION: Hepatomegaly. Diffuse fatty infiltration of the liver. Status post cholecystectomy and appendectomy. Large amount of fecal material is seen in the right hemicolon. Reading Location: [id number]
== END | disposition home or self-care (01) ==
LOC: CT 12:51
PROVIDERS: PCP Family Medicine; Referring Provider Student in an Organized Health Care Education/Training Program; Visit Provider Student in an Organized Health Care Education/Training Program
DX: K59.00 Constipation, unspecified (principal); R10.9 Unspecified abdominal pain
CPT/HCPCS: 74177; Q9967; A4216

== ENCOUNTER → 2025-02-26 | Outpatient (CLI) | payer OTHER, MEDICARE, SELFPAY ==
--- NOTE | 2025-02-26 08:21 | RAD_ITS ---
PROCEDURE: ABDOMEN SINGLE VIEW 02/26/2025 REASON FOR EXAM: CONSTIPATION TECHNIQUE: Procedure Code: RADABD Modality: DX Procedure: ABDOMEN SINGLE VIEW COMPARISON: December 06, 2024 FINDINGS: KUB with two views. There is gas and stool throughout the colon with an increased stool load, consistent with constipation. There are no air-fluid levels. Phleboliths are noted in the pelvis. There is no acute bony abnormality. There is no visible atherosclerosis. RAD/Abdomen Single View IMPRESSION: There is an increased stool load consistent with constipation. Reading Location: [id number]
== END | disposition home or self-care (01) ==
LOC: RAD 08:21
PROVIDERS: PCP Family Medicine; Referring Provider Student in an Organized Health Care Education/Training Program; Visit Provider Student in an Organized Health Care Education/Training Program
DX: K59.00 Constipation, unspecified (principal)
CPT/HCPCS: 74018